=== PATIENT | male | born 1965 | race Caucasian/White ===

== ENCOUNTER → 2018-05-11 | Outpatient (CLI) | payer OTHER | LOC: CAT 12:28 | DX: Z13.6 Encounter for screening for cardiovascular disorders (principal); E78.00 Pure hypercholesterolemia, unspecified; I25.10 Atherosclerotic heart disease of native coronary artery without angina pectoris ==

== ENCOUNTER → 2018-06-27 | Outpatient (CLI) | payer OTHER ==
--- NOTE | 2018-06-27 14:11 | EXE ---
[facility] [address] STRESS ECHOCARDIOGRAM Name: SY GALLARDO Room #: REG CL Abdirizak#: [id number] ������������� Admission: 06/27/18 ������������� Attend Phys: Remy Rodrigues, Discharge: ��� ������������� ��� Date of : 69 Date of Service: 06/27/18 1411 �� Report #: [id number] �������� ��������������������������������������������[id number] THIS REPORT FOR: //name// APPROVED REPORT Study performed: 06/27/2018 11:01:32 Exam: Stress Echocardiogram Indication: Hypertension Patient Location: Out-Patient Stress Nurse: Bobbi Wang RN Room #: Echo lab 2 Status: routine Ht: 5 ft 10 in HR: 96 bpm BP: 146/96 mmHg Rhythm: NSR Medical History Medical History: HTN Allergies: No known drug allergies Cardiac Risk Factors: HTN, Hyperlipidemia, FHX of CAD Exercise History: Physically active Procedure The patient underwent an Exercise Stress Test using the Iain Protocol. Blood pressure, heart rate, and EKG were monitored. An Echocardiogram was performed by respiratory care technician in four stages in quad fashion. At peak stress, four selected images were obtained and placed side by side with resting images for comparison. Stress Test Details Stress Test: Exercise stress testing was performed using a Iain protocol. HR Resting HR: 96 bpm Max Heart Rate (APMHR): 170 bpm Max HR Achieved: 173 bpm Target HR (85% APMHR): 144 bpm % of APMHR: 101 Recovery HR: 118 bpm HR response to stress: Normal HR response to stress BP Resting BP: 146/96 mmHg Max BP: 190/88 mmHg Recovery BP: 170/86 mmHg [facility] [address] [place] [address] STRESS ECHOCARDIOGRAM Name: SAMISY GIO Room #: REG Abdirizak#: [id number] ������������� Admission: 06/27/18 ������������� Attend Phys: Remy Rodrigues, Discharge: ��� ������������� ��� Date of : 69 Date of Service: 06/27/18 1411 �� Report #: [id number] �������� ��������������������������������������������[id number] BP response to stress: Normal blood pressure response to stress. ECG Resting ECG: Sinus Rhythm Stress ECG: Sinus Tachycardia Arrhythmia: None Recovery ECG: Sinus Rhythm Clinical Reason for Termination: Maximal effort Exercise duration: 13 min sec Highest Stage Achieved: Stage 5: 5.0 mph at 18% grade. Exercise capacity: 17.1 METs Overall Exercise Capacity for Age: Good Stress ECG Conclusion 1. Subjectively negative for ischemia 2. Elective cardiographic C negative for ischemia 3. Satisfactory functional capacity Pre-Stress Echo The resting Echocardiogram showed normal left ventricular contractility with an estimated Ejection Fraction of about >55%. Normal wall motion in all segments on baseline images. Post-Stress Echo The stress Echocardiogram showed normal left ventricular contractility with an estimated Ejection Fraction of about >70%. Normal augmentation of wall motion in all segments on post stress images. Clinical Normal augmentation of myocardial wall segments using a 17 segment model. Conclusion Clinical Response: Non-ischemic Exercise Capacity: satisfactory Stress ECG Response: Non-ischemic Stress Echo Images: Non-ischemic 1. Low risk study No prior study available for comparison. Other Information Study Quality: Adequate [facility] [address] [place] [address] STRESS ECHOCARDIOGRAM Name: LINDA GALLARDOK GIO Room #: REG CL Desiree.#: [id number] ������������� Admission: 06/27/18 ������������� Attend Phys: Remy Rodrigues, Discharge: ��� ������������� ��� Date of : 69 Date of Service: 06/27/181410 �� Report #: [id number] �������� ��������������������������������������������[id number] <Conclusion> 1. Low risk study ��������������������������������������������� <ELECTRONICALLY SIGNED> ���������������������������������������� By: Layo Mcconnell MD ��������������������������������������������� 06/27/181410 10 10 Layo Mcconnell MD /INF
== END ==
LOC: CV 05-30 08:10
DX: I10 Essential (primary) hypertension (principal); R93.1 Abnormal findings on diagnostic imaging of heart and coronary circulation